=== PATIENT | male | born 1945 | race Caucasian/White ===

== ENCOUNTER 2016-03-24 16:09 | Emergency (ER) | payer MEDICARE ==
[2016-03-24 16:32] LABS: ABSOLUTE NEUTROPHIL COUNT 2.5 K/mm3 (1.8-7.7); BASO % 0.4 % (0.2-1.0); EOS # 0.2 (0.0-0.5); EOS % 3.2 % (0.9-2.9); HEMATOCRIT 43.6 % (32.0-52.0); IMM NEUT% 0.2 % (0-1); LYMPH # 1.9 (1.0-4.8); LYMPH % 37.8 % (15-45); MEAN CELL VOLUME 90.5 fl (80.0-94.0); MEAN CORPUSCULAR HEMOGLOBIN 31.1 pg (27.0-31.0); MEAN CORPUSCULAR HGB CONC 34.4 g/dl (33.0-37.0); MEAN PLATELET VOLUME 10.2 fl (7.4-10.4); MONO # 0.5 (0.0-0.8); MONO % 9.4 % (4-12); PLATELET COUNT 231 K/mm3 (130-400)
[2016-03-24 16:49] LABS: ALB/GLOB RATIO 1.6 (>1.0); ALBUMIN 4.4 gm/dL (3.5-5.7); CALCIUM 9.3 mg/dL (8.6-10.3)
[2016-03-24 16:56] LABS: TROPONIN I < 0.01 ng/ml (0.0-0.06)
--- NOTE | 2016-03-24 16:58 | RAD ---
EXAMINATION:CHEST - 2 VIEWS CLINICAL INDICATION: Chest pain last evening. COMPARISON:none FINDINGS: The cardiomediastinal silhouette is within normal limits. There is no adenopathy identified. There is no pleural effusion. The lungs are clear. Postsurgical changes the right shoulder are noted. IMPRESSION: Negative PA and lateral views of the chest. No acute cardiopulmonary process is identified.
[2016-03-24 17:06] LABS: D-DIMER 0.2 mg/L FEU (0.20-0.50); INR 0.94; PROTHROMBIN TIME 9.9 SECONDS (9.3-11.4)
== END 2016-03-24 18:00 | disposition home or self-care (01) ==
LOC: ED 16:09
DX: R07.9 Chest pain, unspecified (principal); I10 Essential (primary) hypertension; E78.5 Hyperlipidemia, unspecified; E78.00 Pure hypercholesterolemia, unspecified